=== PATIENT | female | born 1995 | race Caucasian/White ===

== ENCOUNTER 2021-08-18 12:51 | Emergency (ER) | payer MEDICAID ==
[~2021-08-18] VITALS: Ht 154.9 cm; Wt 75.0 kg
[2021-08-18] MEDS ORDERED: IBUPROFEN 600MG TABLET PO STA (13:16)
[2021-08-18 13:38] LABS: BASOPHILS % 0.7 % (0.0-2.0); HEMATOCRIT. 41.2 % (36.0-48.0); HEMOGLOBIN. 14.5 g/dL (12.0-16.0); LYMPHOCYTES % 45.5 % (20.0-50.0); MEAN CORPUSCULAR HEMOGLOBIN 30.9 pg (28.0-32.0); MEAN CORPUSCULAR VOLUME 87.5 fL (81.0-99.0); MEAN PLATELET VOLUME 7.6 fl (7.4-10.4); MONOCYTES % 13.4 % (2.0-8.0); NEUTROPHILS % 39.4 % (40.0-76.0); PLATELET 296 x1000/uL (130-400); RED BLOOD CELL COUNT 4.71 mill/uL (4.2-5.4); RED CELL DISTRIBUTION WIDTH 12.7 % (11.6-14.6)
[2021-08-18 13:41] LABS: CLARITY URINE CLOUDY (CLEAR); COLOR URINE YELLOW (YELLOW); KETONES URINE TRACE (NEGATIVE); LEUKOCYTE ESTERASE URINE 2+ (NEGATIVE); NITRITE URINE NEGATIVE (NEGATIVE); OCCULT BLOOD URINE NEGATIVE (NEGATIVE); PROTEIN URINE NEGATIVE (NEGATIVE); SPECIFIC GRAVITY URINE 1.018 (1.005-1.030); UROBILINOGEN URINE 0.2 E.U./dL (0.2-1.0)
[2021-08-18 13:45] LABS: CHLORIDE 107 mEq/L (98-107)
[2021-08-18 14:25] LABS: HCG SCREEN NEGATIVE
[2021-08-18] MEDS ORDERED: CEPH500C2 MT (15:24)
[2021-08-18 16:29] VITALS: BP 117/83
== END 2021-08-18 16:30 | disposition home or self-care (01) ==
LOC: ER 12:51
DX: R07.89 Other chest pain (principal); Z90.49 Acquired absence of other specified parts of digestive tract
CPT/HCPCS: 36415; 71045; 80053; 81003; 84703; 85025; 93005; 99291

== ENCOUNTER 2023-02-23 22:00 | Emergency (ER) | payer SELFPAY ==
[~2023-02-23] VITALS: Ht 160 cm; Wt 86.0 kg
[~2023-02-23 22:00] MED LIST: CEPH500C2 MT
[2023-02-23 22:25] VITALS: BP 111/77
[2023-02-23 23:16] LABS: BASOPHILS % 0.3 % (0.0-2.0); EOSINOPHILS % 1.3 % (0.0-5.0); HEMATOCRIT. 41.1 % (36.0-48.0); HEMOGLOBIN. 13.7 g/dL (12.0-16.0); LYMPHOCYTES % 20.6 % (20.0-50.0); MEAN CORPUSCULAR HEMOGLOBIN 29.6 pg (28.0-32.0); MEAN CORPUSCULAR VOLUME 88.6 fL (81.0-99.0); MEAN PLATELET VOLUME 7.9 fl (7.4-10.4); NEUTROPHILS % 70.8 % (40.0-76.0); PLATELET 377 x1000/uL (130-400); RED BLOOD CELL COUNT 4.64 mill/uL (4.2-5.4); RED CELL DISTRIBUTION WIDTH 12.9 % (11.6-14.6)
[2023-02-23 23:23] LABS: CHLORIDE 109 mEq/L (98-107); HCG SCREEN NEGATIVE
== END 2023-02-24 00:51 | disposition home or self-care (01) ==
LOC: ER 22:00
DX: R06.02 Shortness of breath (principal); R07.89 Other chest pain; R19.7 Diarrhea, unspecified
CPT/HCPCS: 36415; 71045; 80053; 84703; 85025; 93005; 99285